=== PATIENT | female | born 1990 | race Caucasian/White ===

== ENCOUNTER 2018-01-26 20:25 | Emergency (ER) | payer OTHER ==
[~2018-01-26] VITALS: Ht 175.3 cm; Wt 59.0 kg
[2018-01-26 22:32] LABS: BASOPHIL (%) 0.2 % (0-1); EOSINOPHIL (%) 0.3 % (0-5); HEMATOCRIT 36.9 % (36.0-46.0); HEMOGLOBIN 13.1 G/DL (11.9-15.5); IMMATURE GRANULOCYTE (%) 0.3 % (0.0-0.7); LYMPHOCYTE (%) 23.5 % (15-42); LYMPHOCYTE COUNT 2.2 K/uL (1.0-2.8); MCH 29.5 PG (29.0-34.0); MCHC 35.5 G/DL (30.0-36.0); MCV 83.1 FL (83-99); MONOCYTE (%) 6.2 % (3-12); MONOCYTE COUNT 0.6 K/uL (0-0.8); NEUTROPHIL (%) 69.5 % (45-76); NEUTROPHIL COUNT 6.6 K/uL (1.8-6.4); PLATELET COUNT 237 K/uL (156-360); RBC DIS.WIDTH-SD 36.1 % (39-53); RED BLOOD COUNT 4.44 M/uL (3.80-5.20); WHITE BLOOD COUNT 9.5 K/uL (4.1-10.2)
[2018-01-26 22:43] LABS: CHLORIDE 104 mEq/L (99-109); POTASSIUM 3.8 mEq/L (3.7-5.4); SODIUM 137 mEq/L (136-147)
[2018-01-26 22:44] LABS: GLUCOSE 97 mg/dL (70-99)
[2018-01-26 22:48] LABS: CREATININE 0.8 mg/dL (0.6-1.3); GFR ESTIMATE (CALCULATED) > 59 mL/min/
[2018-01-26 22:49] LABS: UREA NITROGEN (BUN) 8 mg/dL (9-23)
[2018-01-26 22:59] LABS: QUANTITATIVE HCG < 4.0 MIU/ML
[2018-01-26] MEDS ORDERED: BACTRIM,SEPT1 TABLET PO (23:22)
[2018-01-26] MEDS ORDERED: CEFDINIR300 MG PO (23:22)
[2018-01-26] MEDS ORDERED: INDOCIN50 MG PO (23:24)
[2018-01-27 00:50] VITALS: BP 128/68
== END 2018-01-27 00:59 | disposition home or self-care (01) ==
LOC: EME 20:25
PROVIDERS: Physician Assistant
DX: L03.115 Cellulitis of right lower limb (principal); F14.90 Cocaine use, unspecified, uncomplicated; F17.200 Nicotine dependence, unspecified, uncomplicated
CPT/HCPCS: 73630; 80048; 83605; 84702; 85025; 87040; 99281; 99284; J0692; J1100; J1200; J1885; J3370; J7030; S0028